=== PATIENT | male | born 1970 | race Caucasian/White ===

== ENCOUNTER 2022-03-14 13:48 | Inpatient (IN) | payer MEDICAID ==
[~2022-03-14] VITALS: Ht 175.3 cm; Wt 109.8 kg
--- NOTE | 2022-03-14 02:00 | NUR ---
PATIENT ASLEEP,BREATHING EVEN AND UNLABORED,NO DISTRESS NOTED
[2022-03-14 13:53] VITALS: BP 109/64
[2022-03-14 15:43] LABS: HEMATOCRIT 20.2 % (36-52); MEAN CORPUSCULAR HEMOGLOBIN 20 pg (27-31); MEAN CORPUSCULAR HGB CONC 30 g/dL (33-37); MEAN CORPUSCULAR VOLUME 66.7 fL (80-94); PLATELET COUNT (AUTO) 644 K/uL (140-450); RED BLOOD CELL COUNT(AUTO) 3.03 MIL/uL (4.20-6.10); RED CELL DISTRIBUTION WIDTH 20.1 % (11.6-13.7); WHITE BLOOD COUNT (AUTO) 16.3 K/uL (4.8-10.8)
--- NOTE | 2022-03-14 15:51 | NUR ---
PT IN ROOM 5
[2022-03-14 15:55] LABS: ANION GAP 14.3 (8-16); CARBON DIOXIDE 22.6 mmol/L (21-32); CREATININE 0.8 mg/dL (0.6-1.3); POTASSIUM 3.9 mmol/L (3.5-5.1); TOTAL BILIRUBIN 0.4 mg/dL (0.0-1.0)
--- NOTE | 2022-03-14 15:59 | NUR ---
51YR OLD MALE BIB EMS FROM HOME. C/O BED SORES R BUTTOCK R AND L KNEE. NO FEVER NOTED. ORAL TEMP 99.1. PT IS BED BOUND . DENIES PAIN . DENIES SOB AND CP. ON BEDSIDE MONITOR. PCN PARAPLEGIA TORSO DOWN
--- NOTE | 2022-03-14 16:30 | NUR ---
CRITICAL LAB VALUES: HEMO6.0 HEMCT: 20.2 LATIC ACID: 2.3
[2022-03-14 16:38] LABS: LYMPHOCYTES % (MANUAL) 4 % (20-46); MONOCYTES % (MANUAL) 3 % (5-12)
[2022-03-14] MEDS ORDERED: VANCOMYCIN 1,000 MG in DEXTROSE 5% 250 ML IV ONE (16:50)
[2022-03-14] MEDS ORDERED: CALCIUM GLUC 1 GM/50 mL NS BAG 50 ML IV ONE (16:50)
[2022-03-14] MEDS ORDERED: VANCOMYCIN 1,000 MG VIAL ONE (16:56)
[2022-03-14 17:25] LABS: PROTHROMBIN TIME 12.7 secs (10.8-13.4)
[2022-03-14 18:00] LABS: BILIRUBIN,URINE NEGATIVE (NEGATIVE); BLOOD, URINE 3+ (NEGATIVE); COLOR,URINE YELLOW (YELLOW); LEUKOCYTE ESTERASE ,URINE 2+ (NEGATIVE); NITRITE, URINE POSITIVE (NEGATIVE); UGLUCOSE NEGATIVE (NEGATIVE)
[2022-03-14 18:05] LABS: APPEARANCE,URINE CLOUDY (CLEAR)
[2022-03-14 18:23] LABS: RBC,URINE NONE SEEN /HPF (0-5)
[2022-03-14] MEDS ORDERED: NACL 0.9% 1,000 ML IV ONE (18:40)
--- NOTE | 2022-03-14 19:12 | NUR ---
COVID SWAB COLLECTED
--- NOTE | 2022-03-14 20:00 | NUR ---
PATIETN RESTING IN BED. TALKING ON THE PHONE WITH FAMILY MEMBERS. AAOX4, VSS. BED LOW AND LOCKED. JEN SIDE RAILS UP FOR SAFETY. ALL NEEDS MET
[2022-03-14] MEDS ORDERED: VANCOMYCIN PER PHARMACY MC PRN (20:15)
[2022-03-14] MEDS ORDERED: ONDANSETRON 4 MG/2 ML VIAL IVP PRN (20:15)
[2022-03-14] MEDS ORDERED: DOCUSATE SODIUM 250 MG GELCAP PO PRN (20:20)
[2022-03-14] MEDS: LACTATED RINGERS 1,000 ML IV SCH (22:00)
--- NOTE | 2022-03-14 22:40 | NUR ---
Patient [facility]. Admited to MD ODELL. Will go to room 105A. Belongings list completed. Report to ARIANA VANEGAS.TRANSFER OF CARE.
--- NOTE | 2022-03-14 22:40 | NUR ---
Chart checked and completed.
--- NOTE | 2022-03-14 23:00 | NUR ---
RECEIVED PATIENT FROM ER NURSE FOR CONTINUITY OF CARE.PT IS ALERT ORIENTED X 4.IV ON LAC INTACT AND PATENT..NO DISTRESS NOTED.DAUGHERTY CATHETER DRAINING
--- NOTE | 2022-03-15 02:30 | NUR ---
TRANSFUSE 1 UNIT PRBC FOR HGB OF 6.0, NO ADVERSE REACTIONS NOTED. WILL CONTINUE TO MONITOR
[2022-03-15 04:00] VITALS: BP 116/62
[2022-03-15] MEDS ORDERED: VANCOMYCIN 1,000 MG VIAL ONE (05:42)
[2022-03-15] MEDS ORDERED: VANCOMYCIN 500 MG VIAL ONE (05:42)
[2022-03-15] MEDS ORDERED: VANCOMYCIN HCL 1.25 GM in DEXTROSE 5% 250 ML IV ONE (06:00)
--- NOTE | 2022-03-15 06:30 | NUR ---
1 UNIT PRBC HAS BEEN TRANSFUSED,NO ADVERSE REACTIONS NOTED. ONE DOSE OF VANCOCIN 1.25 GM STARTED,NO ADVERSE REACTIONS NOTED
--- NOTE | 2022-03-15 07:06 | NUR ---
PATIENT HAS BEEN SCREENED AND CATEGORIZED MODERATE NUTRITION RISK. PATIENT WILL BE SEEN WITHIN 3-5 DAYS OF ADMISSION. 03/17/22-03/19/22 MADISON BURNS MS, RDN Addendum: 03/15/22 at [address] Correction: PATIENT HAS BEEN SCREENED AND CATEGORIZED HIGH NUTRITION RISK. PATIENT WILL BE SEEN WITHIN 1-2 DAYS OF ADMISSION. 03/15/22-03/16/22 MADISON BURNS MS, RDN
--- NOTE | 2022-03-15 07:25 | NUR ---
SBAR REPORT RECEIVED FROM NIGHT NURSE, ALL CARES ASSUMED.
--- NOTE | 2022-03-15 07:30 | NUR ---
ENDORSED PT TO AM NURSE FOR CONTINUITY OF CARE AND TO ADMINISTER THE SECOND UNIT OF PRBC
[2022-03-15] MEDS: BACLOFEN 10 MG TAB PO SCH ×3 (09:09→17:24)
[2022-03-15] MEDS: FERROUS SULFATE 325 MG TABEC PO SCH ×2 (09:09→17:24)
--- NOTE | 2022-03-15 10:35 | NUR ---
IV CATHETER NOTED OUT OF PLACE, CATHETER APPEARS KINKED. IV REMOVED. NEW IV STARTED ON RIGHT WRIST 18G. BLOOD RETURN NOTED, FLUSHED WITH NORMAL SALINE. Addendum: 03/15/22 at 1827 by Agency 09 ARIANA RN 18 GAUGE TO LEFT WRIST.
[2022-03-15] MEDS: LACTATED RINGERS 1,000 ML IV SCH ×2 (11:05→23:08)
--- NOTE | 2022-03-15 11:44 | NUR ---
(03/15/22) RD INITIAL ASSESSMENT COMPLETED PLEASE REFER TO NUTRITION ASSESSMENT UNDER CARE ACTIVITY FOR ESTIMATED NUTRITIONAL NEEDS. RD RECOMMENDATIONS: 1. CONTINUE ON REGULAR DIET TOLERATED. 2. CONSIDER ADDING KALA TID. 3. CONSULT RDN PRN. 4. RD WILL F/U 2-3 DAYS; HIGH RISK. MARGARITA BURNS MS, RDN
[2022-03-15] MEDS: metroNIDAZOLE 500 MG TAB PO SCH ×2 (13:05→17:24)
--- NOTE | 2022-03-15 14:50 | NUR ---
INITIATED TRANSFUSION OF 1 UNIT PRBC AT 1425. NO ADVERSE REACTION NOTED AT THIS TIME. WILL CONTINUE TO MONITOR.
[2022-03-15 16:00] VITALS: BP 101/60
--- NOTE | 2022-03-15 17:50 | NUR ---
BLOOD TRANSFUSION COMPLETED. VSS, NO ADVERSE REACTION NOTED AT THIS TIME. WILL CONTINUE TO MONITOR.
[2022-03-15] MEDS ORDERED: VANCOMYCIN 1,000 MG in DEXTROSE 5% 250 ML IV SCH (18:00)
--- NOTE | 2022-03-15 19:22 | NUR ---
SBAR REPORT GIVEN TO BABAR RN, ALL CARES ENDORSED.
--- NOTE | 2022-03-15 19:30 | NUR ---
RECEIVED REPORT FROM DAY SHIFT NURSE FOR CONTINUITY OF CARE. PATIENT WAS LYING SUPINE IN BED. IV IS A 18G IN LEFT WRIST WITH LR RUNNING AT 75ML. PATIENT'S BREATHING IS NORMAL WITH SYMMETRICAL RISE AND FALL OF CHEST. BED IS IN LOWEST POSITION WITH WHEELS LOCKED AND CALL LIGHT WITHIN REACH. WILL CONTINUE TO OBSERVE PATIENT.
[2022-03-15 20:00] VITALS: BP 114/65
[2022-03-15 20:12] LABS: BASOPHILS # (AUTO) 0.1 K/uL (0.00-0.22); BASOPHILS % (AUTO) 0.7 % (0.0-2.0); EOSINOPHILS # (AUTO) 0.2 K/uL (0-0.4); EOSINOPHILS % (AUTO) 1.4 % (0.0-4.0); HEMATOCRIT 25.1 % (36-52); HEMOGLOBIN 7.5 g/dL (12.0-18.0); LYMPHOCYTES # (AUTO) 1.6 K/uL (2.0-11.5); LYMPHOCYTES % (AUTO) 9.1 % (20.5-51.1); MEAN CORPUSCULAR HEMOGLOBIN 21 pg (27-31); MEAN CORPUSCULAR HGB CONC 30 g/dL (33-37); MEAN CORPUSCULAR VOLUME 70.6 fL (80-94); MONOCYTES # (AUTO) 2.2 K/uL (0.8-1.0); MONOCYTES % (AUTO) 12.6 % (1.7-9.3); NEUTROPHILS # (AUTO) 13.2 K/uL (1.8-7.7); NEUTROPHILS % (AUTO) 76.2 % (42.2-75.2); PLATELET COUNT (AUTO) 574 K/uL (140-450); RED BLOOD CELL COUNT(AUTO) 3.55 MIL/uL (4.20-6.10); WHITE BLOOD COUNT (AUTO) 17.3 K/uL (4.8-10.8)
[2022-03-15 21:02] LABS: ANION GAP 10.2 (8-16); CARBON DIOXIDE 24.3 mmol/L (21-32); CREATININE 0.7 mg/dL (0.6-1.3); MAGNESIUM 2.2 mg/dL (1.8-2.4); POTASSIUM 3.5 mmol/L (3.5-5.1); TOTAL BILIRUBIN 0.3 mg/dL (0.0-1.0)
--- NOTE | 2022-03-15 21:40 | NUR ---
LOOKED IN ON PATIENT. PATIENT WAS SLEEPING WITH IV RUNNING. BREATHING WAS NORMAL WITH SYMMETRICAL RISE AND FALL OF CHEST. BED WAS IN LOWEST POSITION, WHEELS WERE LOCKED, CALL LIGHT WAS WITHIN REACH. WILL CONTINUE TO OBSERVE PATIENT.
--- NOTE | 2022-03-16 01:15 | NUR ---
LOOKED IN ON PATIENT AND ASSESSED WOUNDS. BOTH DRESSINGS ON THE LEFT KNEE WERE DRY AND INTACT. THE RIGHT KNEE DRESSING WAS WET DUE TO DRAINAGE AND REQUIRED CHANGING. THE OLD DRESSING WAS REMOVED AND A NEW DRESSING WAS APPLIED. ISLAND DRESSING WAS USED WITH THE OIL EMOLSION AND GAUZE PADS, SINCE ABD DRESSING WAS NOT AVAILABLE. THE BUTTOCKS WAS THEN ASSESSED AND THE WOUND WAS FOUND TO HAVE DRAINAGE THAT REQUIRED REPLACING THE BANDAGES ON BOTH THE LEFT AND RIGHT SIDE OF THE BUTTOCKS. NEW NII PADS AND DRESSING WAS APPLIED. PATIENT WAS ALSO GIVEN A NEW GOWN AFTER CHANGE WAS COMPLETE. PATIENT HAD LACTATED RINGER RUNNING AT 75ML, AND BREATHING WAS NORMAL WITH SYMMETRICAL RISE AND FALL OF CHEST. BED WAS IN LOWEST POSITION, WHEELS LOCKED, AND CALL LIGHT WAS WITHIN REACH. WILL CONTINUE TO OBSERVE PATIENT.
--- NOTE | 2022-03-16 05:00 | NUR ---
LOOKED IN ON PATIENT. PATIENT WAS SLEEPING. EMPTIED COLOSTOMY BAG. 50ML OF STOOL WAS EMPTIED. PATIENT'S STOOL WAS SOFT AND BROWN. THERE WAS NO ODOR PRESENT IN STOOL. PATIENT WAS ABLE TO SLEEP THROUGH THE EMPTYING OF THE BAG, WAKING ONLY BRIEFLY WHEN WAKING PATIENT TO LET HIM KNOW THAT THE BAG WAS GOING TO BE EMPTIED. PATIENT'S BED WAS IN LOWEST POSITION, WHEELS LOCKED, CALL LIGHT WITHIN REACH. BREATHING WAS NORMAL AND NON-LABORED WITH SYMMETRICAL RISE AND FALL OF CHEST. WILL CONTINUE TO OBSERVE.
[2022-03-16 06:28] LABS: BASOPHILS # (AUTO) 0.1 K/uL (0.00-0.22); BASOPHILS % (AUTO) 0.7 % (0.0-2.0); EOSINOPHILS # (AUTO) 0.6 K/uL (0-0.4); EOSINOPHILS % (AUTO) 3.1 % (0.0-4.0); HEMATOCRIT 26.1 % (36-52); HEMOGLOBIN 8.1 g/dL (12.0-18.0); LYMPHOCYTES # (AUTO) 1.7 K/uL (2.0-11.5); LYMPHOCYTES % (AUTO) 9.9 % (20.5-51.1); MEAN CORPUSCULAR HEMOGLOBIN 22 pg (27-31); MEAN CORPUSCULAR HGB CONC 31 g/dL (33-37); MONOCYTES # (AUTO) 2.1 K/uL (0.8-1.0); MONOCYTES % (AUTO) 11.7 % (1.7-9.3); NEUTROPHILS # (AUTO) 13.1 K/uL (1.8-7.7); NEUTROPHILS % (AUTO) 74.6 % (42.2-75.2); PLATELET COUNT (AUTO) 658 K/uL (140-450); RED BLOOD CELL COUNT(AUTO) 3.67 MIL/uL (4.20-6.10); WHITE BLOOD COUNT (AUTO) 17.6 K/uL (4.8-10.8)
[2022-03-16 06:35] LABS: ANION GAP 12.4 (8-16); CARBON DIOXIDE 24.1 mmol/L (21-32); CREATININE 0.6 mg/dL (0.6-1.3); POTASSIUM 3.5 mmol/L (3.5-5.1)
--- NOTE | 2022-03-16 07:19 | NUR ---
ENDORSED TO DAY SHIFT NURSE YUNI FOR CONTINUITY OF CARE. PATIENT IS STABLE.
--- NOTE | 2022-03-16 07:22 | NUR ---
SBAR REPORT RECEIVED FROM BABAR RN, ALL CARES ASSUMED.
[2022-03-16] MEDS: FERROUS SULFATE 325 MG TABEC PO SCH ×2 (07:53→17:14)
[2022-03-16 08:00] VITALS: BP 105/64
[2022-03-16] MEDS: BACLOFEN 10 MG TAB PO SCH ×3 (09:00→17:14)
[2022-03-16] MEDS: levoFLOXacin 500 MG TAB PO SCH (09:00)
[2022-03-16] MEDS: metroNIDAZOLE 500 MG TAB PO SCH ×3 (09:00→17:14)
[2022-03-16] MEDS: VANCOMYCIN 750 MG in DEXTROSE 5% 250 ML IV SCH ×2 (11:00→22:44)
[2022-03-16] MEDS: LACTATED RINGERS 1,000 ML IV SCH (12:35)
[2022-03-16 16:00] VITALS: BP 102/60
[2022-03-16] MEDS ORDERED: VANCOMYCIN HCL 750 MG in DEXTROSE 5% 250 ML IV SCH (18:00)
--- NOTE | 2022-03-16 19:28 | NUR ---
SBAR REPORT GIVEN TO BABAR RN, ALL CARES ENDORSED.
--- NOTE | 2022-03-16 19:29 | NUR ---
RECEIVED BEDSIDE REPORT FROM DAY SHIFT YUNI RN FOR CONTINUITY OF CARE. PT IS ASLEEP AT THIS TIME. NO RESPIRATORY DISTRESS NOTED. BREATHING EVEN AND UNLABORED. PT HAS LEFT WRIST 18 GAUGE SALINE LOCK. PT HAS SUPRAPUBIC CATH AND COLOSTOMY. COMMUNICATION BOARD UPDATED. WILL CONTINUE TO MONITOR THE PT.
[2022-03-16 20:00] VITALS: BP 99/63
--- NOTE | 2022-03-16 22:51 | NUR ---
SCHEDULE VANCO GIVEN. NO ADVERSE REACTION NOTED. WILL CONTINUE TO MONITOR THE PT.
--- NOTE | 2022-03-17 01:30 | NUR ---
PT WAS SEEN. PT IS SLEEPING IN BED NOT IN ANY DISTRESS. BREATHING EVEN AND UNLABORED. BED AT THE LOWEST POSITION. CALL LIGHT WITHIN REACH. WILL CONTINUE TO OBSERVE PT.
--- NOTE | 2022-03-17 04:45 | NUR ---
PT BUTTOX DRESSING WAS CHANGED WITH ABD DRESSING. MODERATE AMOUNT OF DRAINAGE NOTED. PT DENIED ANY PAIN AND SAID HE IS OKAY DURING CHANGE. PT REQUESTED A SANDWICH AND JUICE. IT WAS PROVIDED REQUESTED. NO OTHER COMPLAINS. WILL CONTINUE TO MONITOR THE PT.
--- NOTE | 2022-03-17 07:05 | NUR ---
ENDORSED PT TO RADHA FOR CONTINUITY OF CARE. PT IS STABLE.
--- NOTE | 2022-03-17 07:10 | NUR ---
RECEIVED REPORT FROM FLAME ANNEALING MACHINE OPERATOR NURSE FOR CONTINUITY OF CARE. PATIENT ASLEEP NO DISTRESS NOTED. RESPIRAITON EVEN AND NOT LABORED NO SHORTNESS OF BREATH. CALL LIGHT WITH IN EASY REACH.
--- NOTE | 2022-03-17 07:30 | NUR ---
PLAN OF CARE DISCUSSED WITH AISSATOU GARCIA AND WILL CONTINUE ON CURRENT CARE PLAN
[2022-03-17 07:33] LABS: BASOPHILS # (AUTO) 0.1 K/uL (0.00-0.22); BASOPHILS % (AUTO) 0.6 % (0.0-2.0); EOSINOPHILS # (AUTO) 0.3 K/uL (0-0.4); EOSINOPHILS % (AUTO) 1.8 % (0.0-4.0); HEMOGLOBIN 7.8 g/dL (12.0-18.0); LYMPHOCYTES # (AUTO) 1.7 K/uL (2.0-11.5); LYMPHOCYTES % (AUTO) 11.3 % (20.5-51.1); MEAN CORPUSCULAR HEMOGLOBIN 21 pg (27-31); MEAN CORPUSCULAR HGB CONC 30 g/dL (33-37); MEAN CORPUSCULAR VOLUME 71.4 fL (80-94); MONOCYTES # (AUTO) 1.8 K/uL (0.8-1.0); NEUTROPHILS % (AUTO) 74.3 % (42.2-75.2); PLATELET COUNT (AUTO) 645 K/uL (140-450); RED BLOOD CELL COUNT(AUTO) 3.64 MIL/uL (4.20-6.10); RED CELL DISTRIBUTION WIDTH 21.8 % (11.6-13.7); WHITE BLOOD COUNT (AUTO) 14.8 K/uL (4.8-10.8)
[2022-03-17 08:00] VITALS: BP 113/70
[2022-03-17 08:21] LABS: ANION GAP 13.5 (8-16); CARBON DIOXIDE 24.2 mmol/L (21-32); CREATININE 0.6 mg/dL (0.6-1.3); POTASSIUM 3.7 mmol/L (3.5-5.1)
[2022-03-17] MEDS: FERROUS SULFATE 325 MG TABEC PO SCH ×2 (08:44→17:17)
[2022-03-17] MEDS: metroNIDAZOLE 500 MG TAB PO SCH ×3 (08:44→17:17)
[2022-03-17] MEDS: BACLOFEN 10 MG TAB PO SCH ×3 (08:45→17:17)
[2022-03-17] MEDS: levoFLOXacin 500 MG TAB PO SCH (08:45)
--- NOTE | 2022-03-17 08:47 | NUR ---
PATIENT ALERT ATE BREAKFAST. GIVEN ALL HIS DUE MEDICATION TOLERATED WELL. ALL SAFETY MEASURE IN PLACE.
--- NOTE | 2022-03-17 09:45 | NUR ---
RWECEIVED MRSA LB RESULT INFORM DR. BAIN ORDER FOR PROTOCOL AND CONTACT ISOLATION.
[2022-03-17] MEDS: CHLORHEXADINE GLUC 2% CLOTH TP SCH (10:49)
[2022-03-17] MEDS: MUPIROCIN CA NASAL 2% 1GM TUBE NS SCH (10:49)
[2022-03-17] MEDS: VANCOMYCIN 750 MG in DEXTROSE 5% 250 ML IV SCH ×2 (10:56→23:15)
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
--- NOTE | 2022-03-17 12:15 | NUR ---
WOUND NURSE AND I DOING TREATMENT TO PATIENT NOTED THAT WOUND ON COCCYX SOAK WITH BLOOD AND ALSO WITH BLOOD CLOT. WE CLEANSE AND PUT DRESSING WE ARE STILL DOING THE OTHER SIDE AND NOTED THAT WOUND DRESSING IS SOAK WITH BLOOD AGAIN TREATMENT NURSE REINFORCE DRESSING. CALLED DR. BAIN REGARDING THE PATIENT CONDITION. ALSO THE TREATMENT NURSE SPOKE TO SISTER WHO'S TAKING CARE OF THE PATIENT AT HOME SHE INFORM HER THAT PATIENT WILL BENEFIT FOR SNF FOR WOUND MANAGEMENT.
--- NOTE | 2022-03-17 14:35 | NUR ---
LATE ENTRY- VANCOMYCIN DISCONTINUED AT 2240.
--- NOTE | 2022-03-17 15:22 | NUR ---
PATIENT ON STABLE CONDITION NO ADVERSE REACTION NOTED ON ANTIBIOTIC THERAPY. ENCOURAGE TO INCREASE FLUID TOLERATED.
[2022-03-17 16:00] VITALS: BP 103/69
--- NOTE | 2022-03-17 18:02 | NUR ---
RECEIVED LAB RESULT FOR URINE CULTURE WITH ECOLI AND MDRO DR. BAIN AWARE.
--- NOTE | 2022-03-17 18:10 | NUR ---
DR. DENNEY SEE WOUND OF THE PATIENT AND SAID THE WOUND IS CLEAN AND NO ACTIVE BLEEDING AT THIS TIME.
--- NOTE | 2022-03-17 18:30 | NUR ---
DR. CHAVEZ INFORM OF MDRO AND ECOLI IN URINE CULTURE ORDE TO DISCONTINUE LEVAQUIN, VANCO AND FLAGYL AND ORDER MERREM. PATIENT WITH ALLERGY TO PCN AND STATED HE HAS RASH AND HIVES DR. CHAVEZ AWARE AND HE WANT TO SEE FIRST IF HE WILL HAVE REACTION. WILL MONITOR WHEN MERREM IS ADMINISTER. Addendum: 03/17/22 at 1845 by Mary Little LVN ERROR.
--- NOTE | 2022-03-17 18:30 | NUR ---
DR. CHAVEZ INFORM OF MDRO AND ECOLI IN URINE CULTURE ORDE TO DISCONTINUE LEVAQUIN AND FLAGYL AND ORDER MERREM. PATIENT WITH ALLERGY TO PCN AND STATED HE HAS RASH AND HIVES DR. CHAVEZ AWARE AND HE WANT TO SEE FIRST IF HE WILL HAVE REACTION. WILL MONITOR WHEN MERREM IS ADMINISTER.
--- NOTE | 2022-03-17 19:22 | NUR ---
PATIENT AWAKE GAVE REPORT TO TEST ENGINEERING TECHNICIAN NURSE FOR CONTINUITY OF CARE.
--- NOTE | 2022-03-17 19:45 | NUR ---
GET THE REPORT FROM MORNING NURSE, PATIENT IS LYING ON BED, PATIENT IS ALERT ORIENTED X3-4, PATIENT HAS STAGE 4 PRESSURE ULCER ON SACRAL, PATIENT HAS BOTH KNEE AND BOTH HEELS PRESSURE ULCER, CALL LIGHT IS WITHIN THE REACH, WILL CONTINUE TO MONITOR PATIENT.,
--- NOTE | 2022-03-17 19:50 | NUR ---
MORNING NURSE NOTIFIED IN REPORT THAT PATIENT HAS ALLERGY OF PENICILLINS , HIVES AND RASHES,PATIENT IS RECEIVING MEROPENEM 1000MG IV WHICH HAS PENICILLIN SMALL AMOUNT DUE TO PHARMACY, DOCTOR MARIBELL IS AWARE OF THAT AND HE SAID TO GIVE HIS FIRST DOES AT SCHEDULE TIME AND MONITOR FOR REACTION IF HE START REACTION STOP MEDICATION AND NOTIFY DOCTOR, WILL FOLLOW THE DOCTOR ORDER, CALL LIGHT IS WITHIN THE REACH ,WILL CONTINUE TO MONITOR PATIENT.
[2022-03-17 20:00] VITALS: BP 111/49
--- NOTE | 2022-03-17 21:37 | NUR ---
PATIENT HAS FEVER OF 100.9F, GAVE TYLENOL 650 MG PO PRN FOR FEVER PER DOCTOR ORDER, VITAL SIGN IS WITHIN THE NORMAL RANGE, CALL LIGHT IS WITHIN THE REACH, WILL CONTINUE TO MONITOR PATIENT.
[2022-03-17] MEDS: ACETAMINOPHEN 325 MG TAB PO PRN (21:39)
--- NOTE | 2022-03-17 21:40 | NUR ---
TALKED TO PATIENT ABOUT MEROPENEM AND HE SAID HE HAD REACTION WHEN HE WAS 1 YEAR OLD, SO HE SAID HE WANTS TO TAKE IT,VITAL SIGN IS WITHIN THE NORMAL RANGE, WILL CONTINUE TO MONITOR DURING MEDICATION ADMINISTRATION,CALL LIGHT IS WITHIN THE REACH,
[2022-03-17] MEDS: MEROPENEM 1,000 MG in NACL 0.9% 50 ML IV SCH (22:11)
--- NOTE | 2022-03-17 22:28 | NUR ---
ASKED THE PATIENT IF HE HAVE ANY ITCHING HE SAID IM ALL RIGHT, STILL MONITORING FOR HIVES AND RASH, NO ANY HIVES OR RASH AT THIS TIME,CALL LIGHT IS WITHIN THE REACH,
--- NOTE | 2022-03-17 23:17 | NUR ---
FINISHED MEROPENEM 1000MG , NO REACTION NOTED, TOLERATED WELL, WILL CONTINUE TO MONITOR PATIENT.
--- NOTE | 2022-03-18 00:06 | NUR ---
PATIENT IS LYING ON BED, NO ANY COMPLAIN OF PAIN OR SHORTNESS OF BREATH AT THIS TIME, CALL LIGHT IS WITHIN THE REACH, WILL CONTINUE TO MONITOR PATIENT.
[2022-03-18 04:00] VITALS: BP 112/51
[2022-03-18] MEDS: MEROPENEM 1,000 MG in NACL 0.9% 50 ML IV SCH ×3 (04:02→20:57)
--- NOTE | 2022-03-18 04:15 | NUR ---
PATIENT IS LYING ON BED, NO ANY COMPLAIN OF PAIN OR SHORTNESS OF BREATH AT THIS TIME, VITAL SIGN IS WITHIN THE NORMAL RANGE, CALL LIGHT IS WITHIN THE REACH, WILL CONTINUE TO MONITOR PATIENT.
--- NOTE | 2022-03-18 06:07 | NUR ---
PATIENT IS LYING ON BED, ALL SCHEDULE MEDICATION IS GIVEN PER DOCTOR ORDER, CALL LIGHT IS WITHIN THE REACH, WILL CONTINUE TO MONITOR PATIENT.
--- NOTE | 2022-03-18 06:34 | NUR ---
ALL DRESSING CHANGED WITH HELP OF CODING COMPLIANCE MANAGER AND CHANGE POSITION OF PATIENT , NO ACTIVE BLEEDING NOTED, NO ANY COMPLAIN OF PAIN AT THIS TIME, CALL LIGHT IS WITHIN THE REACH, WILL CONTINUE TO MONITOR PATIENT.
--- NOTE | 2022-03-18 07:09 | NUR ---
RECEIVED LAB RESULT FOR BLOOD CULTURE POSITIVE COCCI IN CLUSTER LEFT MESSAGE TO DR. CHAVEZ.
--- NOTE | 2022-03-18 07:16 | NUR ---
GAVE THE REPORT TO MORNING NURSE RADHA FOR CONTINUOS OF CARE, PATIENT IS STABLE.
--- NOTE | 2022-03-18 07:17 | NUR ---
RECEIVED REPORT FROM HYDRAULIC AND PLUMBING INSTALLER NURSE FOR CONTINUITY OF CARE. PATIENT ASLEEP ON WOUND BED. IV SITE LEFT WRIST PIPER 18 TKO. RESPIRATION EVEN AND NOT LABORED NO SHORTNESS OF BREATH. ALL SAFETY MEASURE IN PLACE.
[2022-03-18 07:37] LABS: BASOPHILS # (AUTO) 0.1 K/uL (0.00-0.22); BASOPHILS % (AUTO) 0.5 % (0.0-2.0); EOSINOPHILS # (AUTO) 0.2 K/uL (0-0.4); HEMATOCRIT 25.5 % (36-52); HEMOGLOBIN 7.7 g/dL (12.0-18.0); LYMPHOCYTES # (AUTO) 1.8 K/uL (2.0-11.5); LYMPHOCYTES % (AUTO) 10.1 % (20.5-51.1); MEAN CORPUSCULAR HEMOGLOBIN 21 pg (27-31); MEAN CORPUSCULAR HGB CONC 30 g/dL (33-37); MEAN CORPUSCULAR VOLUME 70.7 fL (80-94); MONOCYTES # (AUTO) 1.7 K/uL (0.8-1.0); MONOCYTES % (AUTO) 9.3 % (1.7-9.3); NEUTROPHILS # (AUTO) 14.5 K/uL (1.8-7.7); NEUTROPHILS % (AUTO) 79.1 % (42.2-75.2); PLATELET COUNT (AUTO) 670 K/uL (140-450); RED BLOOD CELL COUNT(AUTO) 3.61 MIL/uL (4.20-6.10); RED CELL DISTRIBUTION WIDTH 22.4 % (11.6-13.7); WHITE BLOOD COUNT (AUTO) 18.3 K/uL (4.8-10.8)
[2022-03-18 08:05] LABS: ANION GAP 12.4 (8-16); CARBON DIOXIDE 24.1 mmol/L (21-32); CREATININE 0.7 mg/dL (0.6-1.3); POTASSIUM 3.5 mmol/L (3.5-5.1)
[2022-03-18] MEDS: BACLOFEN 10 MG TAB PO SCH ×3 (08:43→16:44)
[2022-03-18] MEDS: FERROUS SULFATE 325 MG TABEC PO SCH ×2 (08:43→16:44)
--- NOTE | 2022-03-18 08:56 | NUR ---
GIVEN HIS MEDICATION AND ASSISTED TO PREPARE HIS BREAKFAST. PATIENT NO DISTRESS NOTED.
[2022-03-18] MEDS: MUPIROCIN CA NASAL 2% 1GM TUBE NS SCH (10:08)
[2022-03-18] MEDS: CHLORHEXADINE GLUC 2% CLOTH TP SCH (10:09)
--- NOTE | 2022-03-18 10:30 | NUR ---
PATIENT WHEELED BY [employer] FOR HIS BONE SCAN. PATIENT ON STABLE CONDITION.
[2022-03-18] MEDS: VANCOMYCIN 750 MG in DEXTROSE 5% 250 ML IV SCH ×2 (11:26→22:48)
--- NOTE | 2022-03-18 11:33 | NUR ---
PATIENT BACK FROM RADIOLOGY PATIENT ON STABLE CONDITION.
[2022-03-18] MEDS: ACETAMINOPHEN 325 MG TAB PO PRN (12:19)
--- NOTE | 2022-03-18 12:20 | NUR ---
PATIENT NOTED WITH CHILLS AND SHIVERING WHEN I CHECK NOTED WITH TEMP. 100.9 GIVEN TYLENOL AND COOLING MEASURE INFORM DR. BAIN.
--- NOTE | 2022-03-18 13:43 | NUR ---
03/18/22 RD FOLLOW UP COMPLETED PLEASE REFER TO NUTRITION ASSESSMENT UNDER CARE ACTIVITY FOR ESTIMATED NUTRITIONAL NEEDS. 1. CONTINUE ON REGULAR DIET TOLERATED. 2. RECOMMEND ENSURE 1XDAY AND KALA BID PER RD PROTOCOL 3. RD WILL F/U 3-5 DAYS; MODERATE RISK. KATERIN WEBB RD
--- NOTE | 2022-03-18 14:00 | NUR ---
RECHECKED TEMPERATURE AND ITS 98.4 NOW PATIENT EATING LUNCH. AND DRINKING WATER.
[2022-03-18 16:00] VITALS: BP 87/52
[2022-03-18] MEDS: GAUZE TP SCH (16:30)
[2022-03-18] MEDS: THERAHONEY GEL 42.5 GM TP SCH (16:30)
--- NOTE | 2022-03-18 16:30 | NUR ---
DRESSING CHANGE ON HIS WOUND AND REPOSITION PATIENT TOLERATED WELL. NO ADVERSE REACTION NOTED ON IV ANTIBIOTIC THERAPY.
--- NOTE | 2022-03-18 19:05 | NUR ---
PATIENT ASLEEP AFTER HE ATE DINNER. GAVE REPORT TO AUTOMOBILE MECHANIC MOTOR NURSE FOR CONTINUITY OF CARE.
--- NOTE | 2022-03-18 19:42 | NUR ---
INFORM DR. CHAVEZ THAT LAB CALLED THAT THE BLOOD CULTURE THAT THEY REPORTED THIS MORNING OF GRAM POSITIVE COCCI IN CLUSTER IS ACTUALLY GRAM NEGATIVE RAD.
--- NOTE | 2022-03-18 19:43 | NUR ---
RECEIVED PT FROM MORNING SHIFT NURSE. PT IS BEDBOUND, AOX3, AND CAN VERBALIZE NEEDS. PT HAS COLOSTOMY AND SUPRA PUBIC CATHETER. PT HAS IV ON LEFT WRIST G18 RUNNING WITH NS AT TKO. PATIENT HAS DTI IN BOTH HEEL AND STAGE 4 PRESSURE ULCER ON BUTTOCKS AND WOUND BOTH KNEE. ALL SAFETY MEASURES IMPLEMENTED. WHEELS OF BED LOCKED AND BED ON LOW POSITION. CALL LIGHT WITHIN REACH.
--- NOTE | 2022-03-18 20:57 | NUR ---
SCHEDULED MEDICATION WAS GIVEN TO PT PER MD ORDER. PT TOLERATE IT WELL. ALL SAFETY MEASURES IMPLEMENTED. BED WHEELS LOCKED, BED IN LOW POSITION AND CALL LIGHT WITHIN REACH.
[2022-03-19] VITALS: BP 95/61
--- NOTE | 2022-03-19 | NUR ---
PT IS ON SLEEP. CHEST RISE AND FALL SYMMETRICALLY NOTED SATING AT 95% AND A PULSE OF 90. ALL SAFETY MEASURES IMPLEMENTED. BED IN LOW POSITION, BED WHEELS LOCKED AND CALL LIGHT WITHIN REACH.
--- NOTE | 2022-03-19 01:35 | NUR ---
NOTIFIED DR. ARELLANO REGARDING PATIENTS BP. LOWEST BP 88/56 WITH THE LATEST OF 93/54. DR. ARELLANO ORDERED NS AT 80ML/HR. NEW ORDER MADE AND CARRIED OUT.
[2022-03-19] MEDS: NACL 0.9% 1,000 ML IV SCH ×2 (02:04→13:09)
[2022-03-19] MEDS: MEROPENEM 1,000 MG in NACL 0.9% 50 ML IV SCH ×3 (04:10→20:39)
--- NOTE | 2022-03-19 04:22 | NUR ---
NOTIFIED DR. ARELLANO FOR ANY ORDERS REGARDING PT BP 95/54 WITH PULSE 95. WAITING FOR MD REPLY.
--- NOTE | 2022-03-19 06:29 | NUR ---
PT LATEST BP 113/68 PULSE OF 95. NO S/S OF PAIN DISCOMFORT NOTED. ALL SAFETY MEASURES IMPLEMENTED. CALL LIGHT WITHIN REACH.
[2022-03-19 07:08] LABS: ANION GAP 9.1 (8-16); CARBON DIOXIDE 25.5 mmol/L (21-32); CREATININE 0.7 mg/dL (0.6-1.3); POTASSIUM 3.6 mmol/L (3.5-5.1)
[2022-03-19 07:13] LABS: BASOPHILS # (AUTO) 0.2 K/uL (0.00-0.22); BASOPHILS % (AUTO) 0.7 % (0.0-2.0); EOSINOPHILS # (AUTO) 0.6 K/uL (0-0.4); EOSINOPHILS % (AUTO) 3.1 % (0.0-4.0); HEMATOCRIT 23.9 % (36-52); LYMPHOCYTES # (AUTO) 1.9 K/uL (2.0-11.5); LYMPHOCYTES % (AUTO) 9.3 % (20.5-51.1); MEAN CORPUSCULAR HEMOGLOBIN 22 pg (27-31); MEAN CORPUSCULAR HGB CONC 30 g/dL (33-37); MEAN CORPUSCULAR VOLUME 72.7 fL (80-94); MONOCYTES # (AUTO) 1.5 K/uL (0.8-1.0); MONOCYTES % (AUTO) 7.4 % (1.7-9.3); NEUTROPHILS # (AUTO) 16.1 K/uL (1.8-7.7); NEUTROPHILS % (AUTO) 79.5 % (42.2-75.2); PLATELET COUNT (AUTO) 618 K/uL (140-450); RED BLOOD CELL COUNT(AUTO) 3.29 MIL/uL (4.20-6.10); RED CELL DISTRIBUTION WIDTH 22.8 % (11.6-13.7); WHITE BLOOD COUNT (AUTO) 20.2 K/uL (4.8-10.8)
--- NOTE | 2022-03-19 07:15 | NUR ---
PT IS STABLE. ENDORSED PT TO MORNING SHIFT NURSE FOR CONTINUITY OF CARE.
--- NOTE | 2022-03-19 07:43 | NUR ---
CONTACTED DR. BAIN REGARDING CRITICAL LAB VALUE. NEW ORDER TO TRANSFUSE 2 UNIT PRBC AND TRANSFER TO TELE.
[2022-03-19 08:00] VITALS: BP 102/57
--- NOTE | 2022-03-19 08:00 | NUR ---
KAITLIN SWELLING. PT STATES KAITLIN PAIN 5/10 AND STATES, "IT HAS BEEN LIKE THIS FOR 2 DAYS ALREADY" IVF STOPPED. IV DISCONTINUED. ARM ELEVATED WITH PILLOW. WARM COMPRESS APPLIED. SPOKE WITH DR. KAM REGARDING KAITLIN SWELLING AND PICC LINE. NEW ORDER FOR US OF KAITLIN AND PICC LINE ORDER. CONSENT SIGNED.
[2022-03-19] MEDS ORDERED: VANCOMYCIN PER PHARMACY MC PRN (08:30)
--- NOTE | 2022-03-19 08:42 | NUR ---
CONTACTED PICC LINE SERVICE TEAM FOR PICCLINE.
[2022-03-19] MEDS: BACLOFEN 10 MG TAB PO SCH ×3 (08:56→16:30)
[2022-03-19] MEDS: FERROUS SULFATE 325 MG TABEC PO SCH ×2 (08:56→16:29)
--- NOTE | 2022-03-19 10:10 | NUR ---
[facility] REPORTING WRONG CRITICAL RESULTS. CONTACTED DR. KAM AND STATES TO CANCEL THE 2 UNITS PRBC AND TRANSFUSE ONLY 1 UNIT PRBC.
[2022-03-19] MEDS: MUPIROCIN CA NASAL 2% 1GM TUBE NS SCH (10:56)
[2022-03-19] MEDS: CHLORHEXADINE GLUC 2% CLOTH TP SCH (10:56)
--- NOTE | 2022-03-19 11:00 | NUR ---
LUISA PICCLINE DOUBLE LUMEN INSERTED VIA PICCLINE TEAM. PT TOLERATED WELL. PT IN NO DISTRESS. ON RA. NEEDS ALL MET. SAFETY MEASURES IN PLACE.
[2022-03-19] MEDS: VANCOMYCIN 750 MG in DEXTROSE 5% 250 ML IV SCH ×2 (11:02→22:57)
[2022-03-19] MEDS: GAUZE TP SCH (13:08)
[2022-03-19] MEDS: THERAHONEY GEL 42.5 GM TP SCH (13:09)
--- NOTE | 2022-03-19 15:50 | NUR ---
STARTED 1 UNIT PRBC
[2022-03-19 16:00] VITALS: BP 129/75
--- NOTE | 2022-03-19 16:05 | NUR ---
1 UNIT PRBC TRANSFUSING. PT WITH NO REACTION. PT DENIES [id number], CHILL, FEVER, PAIN. VSS.
[2022-03-19] MEDS: ACETAMINOPHEN 325 MG TAB PO PRN (16:30)
--- NOTE | 2022-03-19 19:00 | NUR ---
1 UNIT PRBC COMPLETED. VSS. NO ADVERSE REACTION. PICC LINE FLUSHED WITH 10 ML NS.
--- NOTE | 2022-03-19 19:27 | NUR ---
REPORT GIVEN TO KANDACE HERNANDEZ RN FOR CONTINUITY OF CARE.
--- NOTE | 2022-03-19 19:28 | NUR ---
RECEIVED PT FROM MORNING SHIFT NURSE. PT IS BEDBOUND, AOX4, ABLE TO FOLLOW COMMANDS AND ABLE TO VERBALIZE NEEDS. PT HAS COLOSTOMY AND SUPRA PUBIC CATHETER. PT HAS PICC LINE ON RIGHT UPPER ARM, 2X LUMEN RUNNING WITH NS AT 80ML/HR. PATIENT HAS DTI IN BOTH HEEL AND STAGE 4 PRESSURE ULCER ON BUTTOCKS AND WOUND BOTH KNEE. ALL SAFETY MEASURES IMPLEMENTED. WHEELS OF BED LOCKED AND BED ON LOW POSITION. CALL LIGHT WITHIN REACH.
[2022-03-20] VITALS: BP 114/60
--- NOTE | 2022-03-20 00:30 | NUR ---
WOUND WAS CLEANED AND MORNING CARE WAS GIVEN TO PT. ALL MEASURES IMPLEMENTED. CALL LIGHT WITHIN REACH
[2022-03-20] MEDS: NACL 0.9% 1,000 ML IV SCH ×2 (01:41→15:00)
--- NOTE | 2022-03-20 02:00 | NUR ---
PT IS ON SLEEP. CHEST RISE AND FALL SYMMETRICALLY NOTED SATING AT 98%. ALL SAFETY MEASURES IMPLEMENTED. CALL LIGHT WITHIN REACH.
[2022-03-20] MEDS: MEROPENEM 1,000 MG in NACL 0.9% 50 ML IV SCH ×3 (04:16→21:01)
--- NOTE | 2022-03-20 07:08 | NUR ---
PT IS STABLE. ENDORSED PT TO MORNING SHIFT NURSE FOR CONTINUITY CARE.
[2022-03-20 07:13] LABS: BASOPHILS # (AUTO) 0.1 K/uL (0.00-0.22); BASOPHILS % (AUTO) 0.5 % (0.0-2.0); EOSINOPHILS # (AUTO) 0.3 K/uL (0-0.4); EOSINOPHILS % (AUTO) 1.7 % (0.0-4.0); HEMATOCRIT 26.3 % (36-52); LYMPHOCYTES # (AUTO) 1.8 K/uL (2.0-11.5); LYMPHOCYTES % (AUTO) 9.7 % (20.5-51.1); MEAN CORPUSCULAR HEMOGLOBIN 22 pg (27-31); MEAN CORPUSCULAR HGB CONC 30 g/dL (33-37); MEAN CORPUSCULAR VOLUME 73.5 fL (80-94); MONOCYTES # (AUTO) 1.7 K/uL (0.8-1.0); MONOCYTES % (AUTO) 8.7 % (1.7-9.3); NEUTROPHILS # (AUTO) 15.2 K/uL (1.8-7.7); NEUTROPHILS % (AUTO) 79.4 % (42.2-75.2); PLATELET COUNT (AUTO) 596 K/uL (140-450); RED BLOOD CELL COUNT(AUTO) 3.58 MIL/uL (4.20-6.10); WHITE BLOOD COUNT (AUTO) 19.1 K/uL (4.8-10.8)
--- NOTE | 2022-03-20 07:28 | NUR ---
RECEIVED REPORT FROM JAMCTKANDACE WHITESIDE RN. PT A/O X3. ABLE TO MAKE NEEDS KNOWN. AFEBRILE. HOB ELEVATED. NO SOB OR RESPIRATORY DISTRESS. ON RA. RR EVEN & UNLABORED. COLOSTOMY ON LLQ. SUPRACATHETER VIA GRAVITY. WOUND DRESSINGS C/D/I. NS @ 80 ML/HR ON KAITLIN PICC LINE DOUBLE LUMEN. ON CONTACT PRECAUTIONS. NEEDS ALL MET AT THIS TIME. SAFETY MEASURES IN PLACE.
[2022-03-20 08:00] VITALS: BP 106/63
[2022-03-20] MEDS: FERROUS SULFATE 325 MG TABEC PO SCH ×2 (08:57→16:55)
[2022-03-20] MEDS: MUPIROCIN CA NASAL 2% 1GM TUBE NS SCH (08:58)
[2022-03-20] MEDS: BACLOFEN 10 MG TAB PO SCH ×3 (08:58→16:57)
[2022-03-20] MEDS: HYDROcodone/APAP 5/325 MG 1 TAB TAB PO PRN ×2 (09:02→16:55)
[2022-03-20] MEDS: CHLORHEXADINE GLUC 2% CLOTH TP SCH (10:27)
[2022-03-20] MEDS: VANCOMYCIN 750 MG in DEXTROSE 5% 250 ML IV SCH ×2 (10:39→22:55)
[2022-03-20 11:52] LABS: ANION GAP 10.7 (8-16); CARBON DIOXIDE 24.3 mmol/L (21-32); CREATININE 0.7 mg/dL (0.6-1.3)
[2022-03-20 12:00] VITALS: BP 117/64
--- NOTE | 2022-03-20 12:00 | NUR ---
PT CHANGED, CLEANED AND REPOSITIONED. PT TOLERATED WELL AND DENIES PAIN AT THIS TIME. NO SOB OR RESPIRATORY DISTRESS. ON RA. SISTER AT BEDSIDE. COLOSTOMY BAG CHANGED. NEEDS ALL MET AT THIS TIME. SAFETY MEASURES IN PLACE.
[2022-03-20] MEDS: GAUZE TP SCH (13:51)
[2022-03-20] MEDS: THERAHONEY GEL 42.5 GM TP SCH (13:51)
[2022-03-20 16:00] VITALS: BP 102/54
--- NOTE | 2022-03-20 19:00 | NUR ---
PT STABLE, RESTING COMFORTABLY. HOB ELEVATED. IVF INFUSING ON LUISA PICC. DAUGHERTY VIA GRAVITY. NEEDS ALL MET. NO COMPLAINTS AT THIS TIME. SAFETY MEASURES IN PLACE. HOURLY ROUNDS CONDUCTED THROUGHOUT MY SHIFT. WILL ENDORSE POC TO NIGHTSHIFT.
--- NOTE | 2022-03-20 19:32 | NUR ---
BEDSIDE REPORT GIVEN TO NIGHTSHIFT NURSEESTEBAN FOR CONTINUITY OF CARE.
--- NOTE | 2022-03-20 19:35 | NUR ---
RECEIVED REPORT FROM AM NURSE ENMA FOR CONTINUITY OF CARE. PT IS AWAKE A&OX4 . STABLE IN BED. AT BEDSIDE. DENIES PAIN. ON RM AIR/O2 WITH NO ACUTE DISTRESS.. RR EVEN AND UNLABORED WITH EQUAL CHEST RISE.GI IS INTACT. COLOSTOMY BAG IN PLACE WITH BROWN SOFT BM AROUND STOMA.PT'S SKIN IS NOT INTACT. SUPRAPUBIC CATH IS DRAINING CLEAR YELLOW URINE. PT IS A PARAPLEGIC AT T7. PT IS BED BOUND. CALL LIGHT WITHIN REACH. WILL CONTINUE TO MONITOR.
[2022-03-20 20:00] VITALS: BP 102/57
--- NOTE | 2022-03-20 21:30 | NUR ---
HS MEDS GIVEN. SKIN IS NOT INTACT. PRESSURE ULCERS: STAGE IV BUTTOCK ULCER DRESSING D&I. STAGE 3R KNEE DRESSING D&I. STAGE 2 L KNEE DRESSING D&I. BILATERAL HEELS WRAPPED WITH KERLIX D&I. TURNED AND REPOSITIONED WITH PILLOWS TO OFF LOAD PRESSURE AREAS. PT IS STABLE. RESTING, DOZING. RR EVEN AND UNLABORED. ALL SAFETY MEASURES IN PLACE. BED IS IN LOW AND LOCKED POSITION. CALL LIGHT IS WITHIN REACH.
[2022-03-21] VITALS: BP 103/58
[2022-03-21 04:00] VITALS: BP 124/67
[2022-03-21] MEDS: MEROPENEM 1,000 MG in NACL 0.9% 50 ML IV SCH ×3 (04:11→21:20)
[2022-03-21] MEDS: NACL 0.9% 1,000 ML IV SCH ×2 (04:11→14:07)
--- NOTE | 2022-03-21 06:00 | NUR ---
MERREM IVPB INFUSED AND MORRO AM LABS FROM KAITLIN PICC LINE DBL LUMEN. SUPRAPUBIC CATH DRAINED 1950 CC CLEAR YELLOW URINE. ALL PRESSURE ULCER DRESSINGS D&I. CALL LIGHT WITHIN REACH. WILL CONTINUE TO MONITOR.
[2022-03-21 07:33] LABS: BASOPHILS # (AUTO) 0.1 K/uL (0.00-0.22); BASOPHILS % (AUTO) 0.6 % (0.0-2.0); EOSINOPHILS # (AUTO) 0.3 K/uL (0-0.4); EOSINOPHILS % (AUTO) 2.1 % (0.0-4.0); HEMATOCRIT 24.4 % (36-52); HEMOGLOBIN 7.4 g/dL (12.0-18.0); LYMPHOCYTES # (AUTO) 1.5 K/uL (2.0-11.5); LYMPHOCYTES % (AUTO) 9.5 % (20.5-51.1); MEAN CORPUSCULAR HEMOGLOBIN 23 pg (27-31); MEAN CORPUSCULAR HGB CONC 30 g/dL (33-37); MEAN CORPUSCULAR VOLUME 74.4 fL (80-94); MONOCYTES # (AUTO) 0.9 K/uL (0.8-1.0); MONOCYTES % (AUTO) 5.9 % (1.7-9.3); NEUTROPHILS # (AUTO) 12.9 K/uL (1.8-7.7); NEUTROPHILS % (AUTO) 81.9 % (42.2-75.2); PLATELET COUNT (AUTO) 390 K/uL (140-450); RED BLOOD CELL COUNT(AUTO) 3.28 MIL/uL (4.20-6.10); RED CELL DISTRIBUTION WIDTH 24.9 % (11.6-13.7); WHITE BLOOD COUNT (AUTO) 15.8 K/uL (4.8-10.8)
--- NOTE | 2022-03-21 07:35 | NUR ---
ENDORSED REPORT TO AM RN FOR CONTINUITY OF CARE. PT IS STABLE. ALL NEEDS MET THROUGHOUT THE SHIFT.
[2022-03-21 08:24] LABS: ANION GAP 11.6 (8-16); CARBON DIOXIDE 26.9 mmol/L (21-32); CREATININE 0.6 mg/dL (0.6-1.3); POTASSIUM 3.5 mmol/L (3.5-5.1)
[2022-03-21] MEDS: FERROUS SULFATE 325 MG TABEC PO SCH ×2 (08:33→16:45)
[2022-03-21] MEDS: BACLOFEN 10 MG TAB PO SCH ×3 (08:33→16:45)
[2022-03-21] MEDS: HYDROcodone/APAP 5/325 MG 1 TAB TAB PO PRN ×2 (08:37→15:49)
[2022-03-21] MEDS: CHLORHEXADINE GLUC 2% CLOTH TP SCH (09:54)
[2022-03-21] MEDS: MUPIROCIN CA NASAL 2% 1GM TUBE NS SCH (09:54)
[2022-03-21 10:19] VITALS: BP 118/71
[2022-03-21] MEDS: VANCOMYCIN 750 MG in DEXTROSE 5% 250 ML IV SCH ×2 (10:48→22:57)
[2022-03-21] MEDS: GAUZE TP SCH (12:55)
[2022-03-21] MEDS: THERAHONEY GEL 42.5 GM TP SCH (12:56)
[2022-03-21 17:23] VITALS: BP 98/52
--- NOTE | 2022-03-21 17:58 | NUR ---
0730 Pt. sleeping, vss, no distress noted 1200 Pt. aaox4, denies distress, nsr, call light in reach, isolation in place. 1600 Pt. spike fever of 102.5, hr of 145. Pt. given norco 1tab at 1530, blankets removed, and pt. encourage to drink ice water. 1700 Temp of 101.2 Text to Niharika Jc order for bc x2 and cxr, pt. vss, no acute distress noted 1800 Pt. needs met, wound care given as directed, pt. tolerated well, call light in reach, aaox4.
--- NOTE | 2022-03-21 19:12 | NUR ---
RECEIVED REPORT FROM AM ARIANA MIRANDA FOR CONTINUITY OF CARE.PT IS STABLE IN BED. A&OX3 . PT DENIES PAIN. ON RM AIR/O2 WITH NO ACUTE DISTRESS TEMP NOW 98.6 ORALLY AT 1930. PT AND SISTER BALBINA TALKING AT PT'S BEDSIDE. COLOSTOMY BAG FULL OF FORMED BROWN STOOL. PT AND SISTER CHANGING COLOSTOMY BAG. ALL SACRAL COCCYX DRESSINGS CHANGED TODAY. PT'S KAITLIN DBL LUMEN PICC LINE FLUSHED AND PATENT IVF RUNNING NS@80CC/HR. ALL SAFETY MEASURES IN PLACE.BED IN LOW AND LOCKED POSITION. CALL LIGHT WITHIN REACH. WILL CONTINUE TO MONITOR.
[2022-03-21 20:00] VITALS: BP 96/50
--- NOTE | 2022-03-21 21:00 | NUR ---
HS MEDS GIVEN. KAITLIN DBL LUMEN PICC LINE FLUSHED AND PATENT. IVF NS@80CC/HR INFUSING THRU PURPLE PORT, SUPRA PUBIC CATHETER DRAINING CLEAR BISHOP URINE. VSS:BP-96/50, P-99, RR-18, T-98.6, O6YKR=65% ON RM AIR. CALL LIGHT WITHIN REACH. WILL CONTINUE TO MONITOR.
[2022-03-22] VITALS: BP 94/51
[2022-03-22 04:00] VITALS: BP 95/53
[2022-03-22] MEDS: NACL 0.9% 1,000 ML IV SCH ×3 (04:30→23:19)
[2022-03-22] MEDS: MEROPENEM 1,000 MG in NACL 0.9% 50 ML IV SCH (05:40)
--- NOTE | 2022-03-22 06:30 | NUR ---
FREQ ROUNDS. CHECKED PT STABLE. AND AWAKE IN BED. RR EVEN AND UNLABORED WITH EQUAL CHEST RISE. ALL SAFETY MEASURES IN PLACE BED IN LOW AND LOCKED POSITION. CALL LIGHT WITHIN REACH. WILL CONTINUE TO MONITOR.
--- NOTE | 2022-03-22 07:20 | NUR ---
ENDORSED REPORT TO AM NURSE FOR CONTINUITY OF CARE. PT IS STABLE. ALL NEEDS MET THROUGHOUT THE SHIFT.
[2022-03-22 07:40] LABS: BASOPHILS # (AUTO) 0.2 K/uL (0.00-0.22); BASOPHILS % (AUTO) 0.9 % (0.0-2.0); EOSINOPHILS # (AUTO) 0.5 K/uL (0-0.4); EOSINOPHILS % (AUTO) 2.8 % (0.0-4.0); HEMATOCRIT 22.7 % (36-52); LYMPHOCYTES # (AUTO) 1.6 K/uL (2.0-11.5); LYMPHOCYTES % (AUTO) 9.4 % (20.5-51.1); MEAN CORPUSCULAR HEMOGLOBIN 22 pg (27-31); MEAN CORPUSCULAR HGB CONC 30 g/dL (33-37); MEAN CORPUSCULAR VOLUME 74.8 fL (80-94); MONOCYTES # (AUTO) 1.1 K/uL (0.8-1.0); MONOCYTES % (AUTO) 6.4 % (1.7-9.3); NEUTROPHILS # (AUTO) 13.5 K/uL (1.8-7.7); NEUTROPHILS % (AUTO) 80.5 % (42.2-75.2); PLATELET COUNT (AUTO) 437 K/uL (140-450); RED BLOOD CELL COUNT(AUTO) 3.03 MIL/uL (4.20-6.10); RED CELL DISTRIBUTION WIDTH 24.6 % (11.6-13.7); WHITE BLOOD COUNT (AUTO) 16.8 K/uL (4.8-10.8)
[2022-03-22 08:00] VITALS: BP 110/66
[2022-03-22 08:19] LABS: ANION GAP 11.7 (8-16); CARBON DIOXIDE 22.6 mmol/L (21-32); CREATININE 0.8 mg/dL (0.6-1.3); POTASSIUM 3.3 mmol/L (3.5-5.1)
[2022-03-22 08:23] LABS: HEMOGLOBIN 6.8 g/dL (12.0-18.0)
[2022-03-22] MEDS: FERROUS SULFATE 325 MG TABEC PO SCH ×2 (08:33→18:00)
[2022-03-22] MEDS: BACLOFEN 10 MG TAB PO SCH ×3 (08:34→18:00)
[2022-03-22] MEDS ORDERED: POTASSIUM CHLORIDE 10 MEQ TABER PO SCH (10:05)
[2022-03-22] MEDS: VANCOMYCIN 750 MG in DEXTROSE 5% 250 ML IV SCH ×2 (11:54→23:30)
[2022-03-22 12:00] VITALS: BP 109/55
[2022-03-22] MEDS: HYDROcodone/APAP 5/325 MG 1 TAB TAB PO PRN (12:33)
[2022-03-22] MEDS: THERAHONEY GEL 42.5 GM TP SCH (13:28)
[2022-03-22] MEDS: GAUZE TP SCH (13:28)
[2022-03-22 16:00] VITALS: BP 115/62
[2022-03-22] MEDS: FLUCONAZOLE 200 MG/NS PREMIX 100 ML IV SCH (17:59)
--- NOTE | 2022-03-22 19:30 | NUR ---
RECEIVED REPORT FROM DAY SHIFT NURSE YUNI. IV SITE WAS RIGHT UPPER ARM SINGLE LUMEN. PATIENT WAS LYING IN BED WITH NS RUNNING AT 80ML. PATIENT HAS A SACRAL WOUND, A RIGHT KNEE & HEEL WOUND, AND A LEFT KNEE & HEEL WOUND. WILL CONTINUE TO OBSERVE PATIENT.
[2022-03-22 20:00] VITALS: BP 91/51
[2022-03-22] MEDS: ACETAMINOPHEN 325 MG TAB PO PRN (20:24)
--- NOTE | 2022-03-22 21:09 | NUR ---
ARIANA KINCAID ASSIGNED TO THE PATIENT CALLED THE MANAGER OF LOSS PREVENTION OPERATIONS MD TO NOTIFY THAT THE PATIENT IS HAVING A TEMPERATURE OF 103.[address] MIGUEL WHO IS MANAGER OF LOSS PREVENTION OPERATIONS CALLED BACK AND AWARE. NO FURTHER ORDER GIVEN.
--- NOTE | 2022-03-22 21:15 | NUR ---
PICKED UP BLOOD FROM LAB FOR TRANSFUSION. OBTAINED VITALS FOR PATIENT. VITALS WERE: TEMP 103.8, HR 133, BP 91/51, O2 100. DID NOT TRANSFUSE BLOOD. GAVE PATIENT TYLENOL FOR FEVER AND COLD COMPRESS. ALSO MESSAGED PHYSICIAN TO INFORM OF PATIENT'S STATUS. PENDING RESPONSE. PATIENT'S BREATHING WAS NORMAL WITH SYMMETRICAL RISE AND FALL OF CHEST. BED WAS IN LOWEST POSITION, WHEELS LOCKED, CALL LIGHT WITHIN REACH. WILL CONTINUE TO OBSERVE PATIENT.
--- NOTE | 2022-03-22 22:37 | NUR ---
RE CHECKED THE PATIENT TEMPERATURE, ORALLY -98.5 , TEMPORAL- 97.5. CALLED BLOOD BANK TO NOTIFY THEM THAT WE NEED A NEW UNIT OF PRBC BECAUSE THE FIRST UNIT GIVEN EARLIER WAS WASTED AND BEEN SITTING IN THE PATIENT ROOM FOR [address] A NEW ORDER.
--- NOTE | 2022-03-22 23:30 | NUR ---
ADMINISTERED 2300 MEDICATION VANCOMYCIN IVPB. PATIENT'S FEVER WAS GONE, PENDING CALL FROM LAB FOR NEW BLOOD PICKUP. PATIENT WAS AWAKE LISTENING TO MUSIC IN BED. BREATHING WAS NORMAL WITH SYMMETRICAL RISE AND FALL OF CHEST. BED WAS IN LOWEST POSITION WITH WHEELS LOCKED AND CALL LIGHT IN PLACE. WILL CONTINUE TO OBSERVE.
[2022-03-23] VITALS: BP 92/49
--- NOTE | 2022-03-23 02:30 | NUR ---
PICKED UP BLOOD FROM LAB AROUND 0140, AFTER IVPB FINISHED. GATHERED INITIAL VITAL AND STARTED BLOOD AT 0200. OBSERVED PATIENT FOR FIRST 15 MINUTES WHILE BLOOD TRANSFUSED. PATIENT TOLERATED WELL. WILL CONTINUE TO MONITOR PATIENT PER PROTOCOL DURING TRANSFUSION. PATIENT'S BREATHING IS NORMAL WITH SYMMETRICAL RISE AND FALL OF CHEST. BED WAS IN LOWEST POSITION, WHEELS LOCKED, CALL LIGHT IN PLACE.
[2022-03-23 04:00] VITALS: BP 95/50
--- NOTE | 2022-03-23 05:00 | NUR ---
OBTAINED 0400 VITALS. OBTAINED STOOL SAMPLE. OBTAINED URINE SAMPLE. PATIENT IS LYING IN BED. IVF RUNNING NS AT 80ML/HR. WILL CONTINUE TO OBSERVE PATIENT.
[2022-03-23 07:16] LABS: BASOPHILS # (AUTO) 0.1 K/uL (0.00-0.22); BASOPHILS % (AUTO) 0.8 % (0.0-2.0); EOSINOPHILS # (AUTO) 0.5 K/uL (0-0.4); HEMATOCRIT 27.3 % (36-52); HEMOGLOBIN 8.3 g/dL (12.0-18.0); MEAN CORPUSCULAR HEMOGLOBIN 23 pg (27-31); MEAN CORPUSCULAR HGB CONC 30 g/dL (33-37); MEAN CORPUSCULAR VOLUME 75.5 fL (80-94); MONOCYTES # (AUTO) 1.4 K/uL (0.8-1.0); MONOCYTES % (AUTO) 8.7 % (1.7-9.3); NEUTROPHILS # (AUTO) 11.9 K/uL (1.8-7.7); NEUTROPHILS % (AUTO) 74.9 % (42.2-75.2); PLATELET COUNT (AUTO) 499 K/uL (140-450); RED BLOOD CELL COUNT(AUTO) 3.61 MIL/uL (4.20-6.10); RED CELL DISTRIBUTION WIDTH 24.3 % (11.6-13.7); WHITE BLOOD COUNT (AUTO) 15.9 K/uL (4.8-10.8)
--- NOTE | 2022-03-23 07:30 | NUR ---
SBAR REPORT RECEIVED FROM CODI L[address], ALL CARES ASSUMED. PT RESTING. BED IN LOW AND LOCKED POSITION, CALL LIGHT WITHIN REACH.
--- NOTE | 2022-03-23 07:35 | NUR ---
ENDORSED CARE OF PATIENT TO DAY SHIFT NURSE YUNI. PATIENT IS STABLE.
[2022-03-23 07:38] LABS: ANION GAP 10.8 (8-16); CARBON DIOXIDE 25.1 mmol/L (21-32); CREATININE 0.6 mg/dL (0.6-1.3); POTASSIUM 3.9 mmol/L (3.5-5.1)
[2022-03-23 08:00] VITALS: BP 98/52
[2022-03-23] MEDS: FERROUS SULFATE 325 MG TABEC PO SCH ×2 (08:05→16:20)
[2022-03-23] MEDS: BACLOFEN 10 MG TAB PO SCH ×3 (08:05→16:20)
[2022-03-23] MEDS: HYDROcodone/APAP 5/325 MG 1 TAB TAB PO PRN (08:10)
[2022-03-23 09:13] LABS: LYMPHOCYTES % (AUTO) 12.6 % (20.5-51.1)
[2022-03-23] MEDS: VANCOMYCIN 750 MG in DEXTROSE 5% 250 ML IV SCH ×2 (11:19→23:27)
[2022-03-23 12:00] VITALS: BP 97/56
[2022-03-23] MEDS: GAUZE TP SCH (12:41)
[2022-03-23] MEDS: THERAHONEY GEL 42.5 GM TP SCH (13:00)
[2022-03-23 16:00] VITALS: BP 128/86
[2022-03-23] MEDS: FLUCONAZOLE 200 MG/NS PREMIX 100 ML IV SCH (16:20)
[2022-03-23] MEDS: NACL 0.9% 1,000 ML IV SCH (18:02)
--- NOTE | 2022-03-23 19:30 | NUR ---
RECEIVED REPORT FROM DAY SHIFT NURSE YUNI. PATIENT WAS LYING IN BED WITH FAMILY AT BEDSIDE. PATIENT'S IV SITE WAS LUISA SINGLE LUMEN RUNNING NS 80ML/HR. PATIENT BREATHING WAS NORMAL ON ROOM AIR WITH SYMMETRICAL RISE AND FALL OF CHEST. BED WAS IN LOWEST POSITION, WHEELS LOCKED, CALL LIGHT IN REACH. WILL CONTINUE TO OBSERVE.
--- NOTE | 2022-03-23 19:31 | NUR ---
SBAR REPORT GIVEN TO CODI L[address], ALL CARES ENDORSED.
[2022-03-23 20:00] VITALS: BP 95/40
--- NOTE | 2022-03-23 20:29 | NUR ---
03/23/22 RD FOLLOW UP COMPLETED. PLEASE REFER TO NUTRITION ASSESSMENT UNDER CARE ACTIVITY FOR ESTIMATED NUTRITIONAL NEEDS. 1. CONTINUE ON REGULAR DIET TOLERATED. 2. CONTINUE ENSURE 1XDAY AND KALA BID PER RD PROTOCOL 3. RD WILL F/U 3-5 DAYS; MODERATE RISK. ROMINA FONTANEZ RD
--- NOTE | 2022-03-23 21:15 | NUR ---
LOOKED IN ON PATIENT. PATIENT WAS SLEEPING. IVF WAS RUNNING AT 80ML/HR. WILL CONTINUE TO OBSERVE.
--- NOTE | 2022-03-23 23:45 | NUR ---
ROBERTA FRANCIS IVPB. PATIENT WAS SLEEPING. TITO BEGAN RUNNING WITHOUT ISSUE. WILL CONTINUE TO OBSERVE.
[2022-03-24] VITALS: BP 92/57
--- NOTE | 2022-03-24 01:15 | NUR ---
TITO FINISHED RUNNING. PATIENT WAS STILL SLEEPING. WILL CONTINUE TO OBSERVE PATIENT.
[2022-03-24 04:00] VITALS: BP 92/50
[2022-03-24] MEDS: NACL 0.9% 1,000 ML IV SCH ×2 (04:56→19:24)
--- NOTE | 2022-03-24 05:00 | NUR ---
CHANGED IV LINE IN FOR PRIMARY BAG. HUNG NEW NS BAG. PATIENT WAS ASLEEP. WILL CONTINUE TO OBSERVE PATIENT.
--- NOTE | 2022-03-24 06:00 | NUR ---
OBTAINED BLOOD FOR LAB. PATIENT WAS AWAKE. HE STATED THAT HE WAS FEELING OKAY AND ASKED FOR HIS BLANKET TO BE PULLED HIRE UP, PULLED BLANKET UP AND ASKED IF ANYTHING ELSE WAS NEEDED. PATIENT STATED NO. IVF WAS RUNNING NS 80ML. WILL CONTINUE TO OBSERVE PATIENT.
[2022-03-24 06:39] LABS: HEMOGLOBIN 7.8 g/dL (12.0-18.0); MEAN CORPUSCULAR HEMOGLOBIN 23 pg (27-31); MEAN CORPUSCULAR HGB CONC 30 g/dL (33-37); MEAN CORPUSCULAR VOLUME 75.5 fL (80-94); PLATELET COUNT (AUTO) 483 K/uL (140-450); RED BLOOD CELL COUNT(AUTO) 3.44 MIL/uL (4.20-6.10); RED CELL DISTRIBUTION WIDTH 24.2 % (11.6-13.7); WHITE BLOOD COUNT (AUTO) 13.2 K/uL (4.8-10.8)
[2022-03-24 06:45] LABS: ANION GAP 10.8 (8-16); CARBON DIOXIDE 25.5 mmol/L (21-32); CREATININE 0.6 mg/dL (0.6-1.3); POTASSIUM 3.3 mmol/L (3.5-5.1)
--- NOTE | 2022-03-24 07:45 | NUR ---
ENDORSED CONTINUITY OF CARE TO DAY SHIFT NURSE. PATIENT IS STABLE.
[2022-03-24 08:00] VITALS: BP 141/61
--- NOTE | 2022-03-24 08:29 | NUR ---
RECEIVE ENDORSEMENT FROM PM SHIFT NURSE THAT PATIENT RES IN BED, MIDLINE LUISA INFUSING NS @80ML/HR. MORNING LAB POTASSIUM 3.3; PCP AWARE AND ORDER IS PLACING SHORTLY. WILL CONTINUE TO MONITOR
[2022-03-24] MEDS ORDERED: POTASSIUM CHLORIDE 10 MEQ TABER PO PRN (08:30)
[2022-03-24] MEDS ORDERED: KCL 20 MEQ/WATER INJ PREMIX 200 ML IV PRN (08:30)
[2022-03-24] MEDS ORDERED: MAG SULF 2000 MG/WATER PREMIX 50 ML IV PRN (08:30)
[2022-03-24] MEDS ORDERED: MAGNESIUM OXIDE 400 MG TAB PO PRN (08:30)
[2022-03-24 08:59] LABS: BASOPHILS % (MANUAL) 0 % (0-2); EOSINOPHILS % (MANUAL) 5 % (0-4); LYMPHOCYTES % (MANUAL) 12 % (20-46); MONOCYTES % (MANUAL) 10 % (5-12)
[2022-03-24 09:00] LABS: BUFFY COAT SMEAR PREP N
[2022-03-24] MEDS: BACLOFEN 10 MG TAB PO SCH ×3 (09:08→16:09)
[2022-03-24] MEDS: HYDROcodone/APAP 5/325 MG 1 TAB TAB PO PRN ×3 (09:08→16:08)
[2022-03-24] MEDS: FERROUS SULFATE 325 MG TABEC PO SCH ×2 (09:09→16:07)
--- NOTE | 2022-03-24 11:30 | NUR ---
WOUND CARE RE-EVALUATION NOTE: WOUND CARE DONE WITH PRIMARY ARIANA BOYER. WOUND CARE NURSE MET WITH SISTER ROBINSON AT BED SIDE. SISTER BROUGHT COLOSTOMY SUPPLY FROM HOME AND HAS JUST FINISHED THE COLOSTOMY CARE. ALL QUESTIONS ABOUT WOUND CARES ANSWERED, POC DISCUSSED INCLUDING NUTRITION, INTERVENTIONS OF SKIN ,PRESSURE INJURY PREVENTION PLUS OF DAILY WOUND CARE AND PER SISTER SHE IS ABLE AND WILL CONTINUE TO FOLLOW DIRECTIONS. SACRALCOCCYX, RIGHT ISCHIUM AND RIGHT KNEE WOUND RE-EVALUATION DONE. PER PT. ALL OTHER WOUND DRESSING WERE JUST CHANGED FEW HOURS AGO. DO NOT WANT IT TO BE TOUCHED AGAIN. DRESSING DCI. SACRALCOCCYX WOUND PHOTO OBTAINED BY PRIMARY ARIANA BOYER. PER SISTER LAST WOUND ASSESSMENT FROM HOME WOUND DOCTOR WAS 02/21/2022. THEN PT. ADMITTED TO HOSPITAL. PER SISTER DUE TO PT. KEPT SLIDING OUT OF WC AND SHE STRAPPED HIS LEG. THAT IS HOW THE RIGHT KNEE WOUND STARTED. EDUCATION PROVIDED NEED TO FIT THE WC FOR PROPER SIZE. PER SISTER THERE WAS A COMPANY SUPPOSE TO COME TO DO THAT, SHE WILL CALL THE COMPANY AGAIN TO FOLLOW UP. RIGHT KNEE BROWN TISSUE RESOLVED AND RESPOND TO [place]. WILL TRY AGAIN SOME TIME THIS WEEK TO EVAL. REST OF WOUNDS. TODAYS RE-EVALUATION: -PRESSURE INJURY STAGE 4, SACROCOCCYX [id number] TUNNEL WOUND TO 3 0CLOCK 6.5CM, HEBER-WOUND SKIN TO ENTIRE BILATERAL BUTTOCKS WITH FULL THICKNESS SKIN LOSS 89O83C3.3CM WOUND BED GRANULATION RED TISSUE, MOIST, NO ODOR, WOUND EDGE TOWARD 9 OCLOCK DIRECTION HEALING SCARE TISSUE LIFTED WITH A TUNNEL WOUND 0.5CM AND 6CM DEEP, CLEAN, MOIST, SURROUNDING OLD HEALED SCAR TISSUE PINK AND MOIST. - RIGHT KNEE PRESSURE INJURY STAGE 4,13X8X0.5CM, WOUND BED WITH 100% GRANULATING TISSUE, TUNNEL TO 1 OCLOCK DIRECTION 0.8CM DEEP, MOIST, NO ODOR, HEBER WOUND SKIN INTACT. - PRESSURE INJURY STAGE 4, RIGHT ISCHIUM 5X4X5.5CM WOUND BED IS RED 90% GRANULATING TISSUE,10% LIGHT BROWN SLOUGH TISSUE TO 9 OCLOCK DIRECTION, MOIST NO ODOR, HEBER WOUND SKIN OLD HEALED SCAR TISSUE, MOIST SURROUNDING REDNESS WITH SKIN INTACT.
[2022-03-24] MEDS: VANCOMYCIN 750 MG in DEXTROSE 5% 250 ML IV SCH ×2 (11:54→23:00)
[2022-03-24 12:00] VITALS: BP 110/77
[2022-03-24] MEDS: GAUZE TP SCH (12:07)
[2022-03-24] MEDS: THERAHONEY GEL 42.5 GM TP SCH (12:07)
[2022-03-24] MEDS: MEROPENEM 1,000 MG in NACL 0.9% 50 ML IV SCH ×2 (13:38→20:03)
--- NOTE | 2022-03-24 14:20 | NUR ---
DC PLANNING: PER DR CHAVEZ'S NOTES PT HAS FEVER OVERNIGHT RAISING POSSIBILITY OF NEW INFECTION ORDERED TO REPEAT BLOOD AND URINE CULTURES REPEAT CXR AND C-DIFF. ON VANCO AND MEROPENEM ADD FLUCONAZOLE . PT IS WITH [employer] AND A SISTER IS HIS PRIMARY CARE GIVE. PATIENT STATED REFUSED TO GO TO SNF AND PT'S SISTER STATED SHE IS THE BUILDING CONSTRUCTION TEACHER FOR HIM. DC PLAN TO GO HOME WITH [facility]. CM TO FOLLOW Addendum: 03/25/22 at 1232 by Elizabeth Hilliard RN DC PLANNING: CM DISCUSSED THE DC PLAN WITH DR CROWE STATED HE IS WAITING FOR DR CHRISTINE TO CLEAR PATIENT, PE DR CHRISTINE'S NOTES ORDERED REPEAT BLOOD CULTURE AND TO REEVALUATE WITH SURGEON FOR SACRAL DECUB. CALLED [facility] SPOKE WITH MICROBIOLOGIST STATED SINCE IT'S ANAEROBIC CULTURE THERE IS NO SENSITIVITY, NOTIFIED DR CROWE. DC PLAN PER DR CHAVEZ'S RECOMMENDATIONS. PT IS WITH [employer] AND HIS SISTER IS THE MAIN BUILDING CONSTRUCTION TEACHER TRAINED TO CHANGE SACRAL WOUND. CM TO FOLLOW Addendum: 03/26/22 at 1139 by Elizabeth Hilliard RN DC PLANNING: RECEIVED A CALL FROM [facility] SPOKE WITH PATRICIA STATED SHE IS WORKING ON THE HOME INFUSION WITH THE CONTRACTED PHARMACY AND WILL CALL BACK. BUZZ MENTIONED ABOUT THE NEED FOR THE HOSPITAL BED, PATRICIA STATED TO CALL [facility] [phone] . BUZZ CALLED [facility] SPOKE WITH MARIA STATED THE HOSPITAL BED ISSUED JANUARY 2020 AND ITS OWNED BY THE PATIENT. BUZZ CALLED BACK [facility] NOTIFIED HER THAT PO NEEDS NEW AUTHORIZATION. PATRICIA STATED WILL SUBMIT TO [facility] DIAPER MACHINE TENDER AND WILL CALL PT'S SISTER. BUZZ TO FOLLOW
[2022-03-24 16:00] VITALS: BP 93/50
[2022-03-24] MEDS: FLUCONAZOLE 200 MG/NS PREMIX 100 ML IV SCH (16:07)
--- NOTE | 2022-03-24 19:54 | NUR ---
ENDORSE PATIENT TO PM SHIFT NURSE THAT PATIENT REST IN BED, MIDLINE LUISA INFUSING NS @80ML/HR. MORNING LAB POTASSIUM 3.3 CORRECT WITH 40MEQ K DUR VIA MOUTH.
[2022-03-24 20:00] VITALS: BP 90/52
--- NOTE | 2022-03-24 20:00 | NUR ---
RECEIVED REPORT FROM AM NURSE FOR CONTINUITY OF CARE. PT IS AWAKE IN BED TALKING WITH SISTER AND FINISHING DINNER. A&OX4. DENIES PAIN AT THIS TIME.ON RM AIR/O2 WITH NO ACUTE DISTRESS.RR EVEN AND UNLABORED WITH EQUAL CHEST RISE. GI IS NOT INTACT. COLOSTOMY BAG HAS A MODERATE AMOUNT OF SOFT BROWN STOOL. PT'S SKIN HAS MULTIPLE PRESSURE WOUND: STAGE 4 R BUTTOCK, STAGE 3 R KNEE, STAGE 2 L KNEE, AND DTI'S BILATERAL FEET. ALL DRESSINGS ARE D&I. PT IS BED BOUND BUT ASSISTS IN TURNING. SUPRA PUBIC CATHETER DRAINING CLEAR YELLOW URINE. ALL SAFETY MEASURES IN PLACE. BED IS IN LOW AND LOCKED POSITION. CALL LIGHT WITHIN REACH. WILL CONTINUE TO MONITOR.
--- NOTE | 2022-03-24 22:30 | NUR ---
COLOSTOMY BAG WAS FULL. PT ASSISTED RN IN CHANGING THE COLOSTOMY BAG. PT WAS REPOSITIONED FOR COMFORT AND TO OFF LOAD PRESSURE AREAS. PT RESTING DOZING. RR EVEN AND UNLABORED WITH EQUAL CHEST RISE. ALL SAFETY MEASURES IN PLACE. BED IN LOW AND LOCKED POSITION. CALL LIGHT WITHIN REACH. WILL CONTINUE WITH FREQ ROUNDS.
[2022-03-25] VITALS: BP 94/55
[2022-03-25 04:00] VITALS: BP 106/54
[2022-03-25] MEDS: MEROPENEM 1,000 MG in NACL 0.9% 50 ML IV SCH ×3 (04:09→21:31)
[2022-03-25] MEDS: HYDROcodone/APAP 5/325 MG 1 TAB TAB PO PRN ×3 (06:13→16:42)
--- NOTE | 2022-03-25 06:13 | NUR ---
PT C/O 8/10 PAIN IN LOWER BACK, SHOULDERS AND HEAD. RECEIVED NORCO 1TAB PO. WITH RELIEF DISCOMFORT EASING AFTER 20 MINUTES. WILL CONTINUE TO MONITOR.
[2022-03-25] MEDS: NACL 0.9% 1,000 ML IV SCH ×2 (07:30→20:00)
[2022-03-25 08:00] VITALS: BP 90/53
--- NOTE | 2022-03-25 08:10 | NUR ---
RECEIVE ENDORSEMENT FROM PM SHIFT NURSE THAT PATIENT REST IN BED WHILE IV NS INFUSING VIA LUISA PICC LINE. WILL CONTINUE TO MONITOR
[2022-03-25] MEDS: BACLOFEN 10 MG TAB PO SCH ×3 (08:36→16:41)
[2022-03-25] MEDS: FERROUS SULFATE 325 MG TABEC PO SCH ×2 (08:36→16:41)
[2022-03-25 09:47] LABS: BASOPHILS # (AUTO) 0.1 K/uL (0.00-0.22); RED BLOOD CELL COUNT(AUTO) 3.27 MIL/uL (4.20-6.10)
[2022-03-25 10:01] LABS: ALBUMIN 0.8 g/dL (3.4-5.0); ANION GAP 7.8 (8-16); CARBON DIOXIDE 26.7 mmol/L (21-32); CREATININE 0.6 mg/dL (0.6-1.3); POTASSIUM 3.5 mmol/L (3.5-5.1); TOTAL BILIRUBIN 0.1 mg/dL (0.0-1.0)
[2022-03-25 10:03] LABS: BASOPHILS % (AUTO) 0.9 % (0.0-2.0); EOSINOPHILS # (AUTO) 0.5 K/uL (0-0.4); EOSINOPHILS % (AUTO) 3.5 % (0.0-4.0); HEMATOCRIT 24.8 % (36-52); HEMOGLOBIN 7.5 g/dL (12.0-18.0); LYMPHOCYTES # (AUTO) 1.6 K/uL (2.0-11.5); LYMPHOCYTES % (AUTO) 11.3 % (20.5-51.1); MEAN CORPUSCULAR HEMOGLOBIN 23 pg (27-31); MEAN CORPUSCULAR HGB CONC 30 g/dL (33-37); MEAN CORPUSCULAR VOLUME 75.8 fL (80-94); MONOCYTES # (AUTO) 1.4 K/uL (0.8-1.0); MONOCYTES % (AUTO) 9.7 % (1.7-9.3); NEUTROPHILS # (AUTO) 10.7 K/uL (1.8-7.7); NEUTROPHILS % (AUTO) 74.6 % (42.2-75.2); PLATELET COUNT (AUTO) 446 K/uL (140-450); RED CELL DISTRIBUTION WIDTH 24.5 % (11.6-13.7); WHITE BLOOD COUNT (AUTO) 14.4 K/uL (4.8-10.8)
[2022-03-25] MEDS: VANCOMYCIN 750 MG in DEXTROSE 5% 250 ML IV SCH ×2 (11:22→22:17)
[2022-03-25 12:00] VITALS: BP 90/53
[2022-03-25] MEDS: GAUZE TP SCH (12:48)
[2022-03-25] MEDS: THERAHONEY GEL 42.5 GM TP SCH (12:49)
--- NOTE | 2022-03-25 14:11 | NUR ---
RE-DO PATIENT'S WOUND DRESS AT SACROCOCCYGEAL. PATIENT TOLERATE PROCEDURE. ADDITIONAL, PER PATIENT'S SISTER, PATIENT'S SBP BASELINE AROUND 90 D/T INHERITANCE. WILL CONTINUE TO MONITOR
[2022-03-25 16:00] VITALS: BP 107/49
[2022-03-25] MEDS: FLUCONAZOLE 200 MG/NS PREMIX 100 ML IV SCH (16:40)
[2022-03-25 20:00] VITALS: BP 90/58
[2022-03-26] VITALS: BP 93/55
[2022-03-26 04:00] VITALS: BP 97/69
[2022-03-26] MEDS: MEROPENEM 1,000 MG in NACL 0.9% 50 ML IV SCH ×2 (04:08→13:11)
--- NOTE | 2022-03-26 07:25 | NUR ---
ENDORSED TO AM ARIANA GUADARRAMA FOR CONTINUITY OF CARE. PT IS STABLE. ALL NEEDS MET THROUGHOUT THE SHIFT.
--- NOTE | 2022-03-26 07:30 | NUR ---
RECEIVED REPORT FROM AGENCY SALES REPRESENTATIVE NURSEESTEBAN FOR CONTINUITY OF CARE, PT RESTING IN BED ON ROOM AIR WITH CHEST RISING AND FALLING EVEN AND UNLABORED, SHEET OVER FACE. ON TELE MONITOR SHOWING SR. PT HS COLOSTOMY BAG, AND SUPRAPUBIC CATH. RIGHT UPPER ARM MIDLINE RUNNING NS @80. MULTIPLE WOUNDS REPORTED, SEE WOUND ASSESSMENT. PLAN IS TO SET UP HOME HEALTH FOR IV ABX AND WOUND CARE, PENDING CASE MANAGEMENT. ALL SAFETY MEASURES IN PLACE, CALL LIGHT WITHIN REACH. WILL CONTINUE TO MONITOR.
[2022-03-26 08:00] VITALS: BP 112/59
[2022-03-26] MEDS ORDERED: FLUC200T PO (08:12)
[2022-03-26] MEDS: NACL 0.9% 1,000 ML IV SCH (08:14)
[2022-03-26] MEDS: FERROUS SULFATE 325 MG TABEC PO SCH (08:16)
[2022-03-26] MEDS: BACLOFEN 10 MG TAB PO SCH ×2 (08:16→13:11)
[2022-03-26 08:39] LABS: BASOPHILS # (AUTO) 0.1 K/uL (0.00-0.22); BASOPHILS % (AUTO) 0.8 % (0.0-2.0); EOSINOPHILS # (AUTO) 0.2 K/uL (0-0.4); HEMATOCRIT 27.2 % (36-52); HEMOGLOBIN 8.2 g/dL (12.0-18.0); LYMPHOCYTES # (AUTO) 1.4 K/uL (2.0-11.5); LYMPHOCYTES % (AUTO) 8.6 % (20.5-51.1); MEAN CORPUSCULAR HEMOGLOBIN 23 pg (27-31); MEAN CORPUSCULAR HGB CONC 30 g/dL (33-37); MEAN CORPUSCULAR VOLUME 75.3 fL (80-94); MONOCYTES % (AUTO) 5.7 % (1.7-9.3); NEUTROPHILS # (AUTO) 14.2 K/uL (1.8-7.7); NEUTROPHILS % (AUTO) 83.9 % (42.2-75.2); PLATELET COUNT (AUTO) 530 K/uL (140-450); RED BLOOD CELL COUNT(AUTO) 3.61 MIL/uL (4.20-6.10); RED CELL DISTRIBUTION WIDTH 24.5 % (11.6-13.7); WHITE BLOOD COUNT (AUTO) 16.9 K/uL (4.8-10.8)
--- NOTE | 2022-03-26 09:00 | NUR ---
[facility]IKA MEDICATION ADMINISTERED PER MD ORDER, PT EDUCATED AND VERBALIZED UNDERSTANDING. PROVIDED WITH FRESH WATER AND ALL OTHER NEEDS MET. PT VERBALIZED NO NEED FOR ANYTHING AT THIS TIME. ALL SAFETY MEASURES IN PLACE, CALL LIGHT WITHIN REACH. WILL CONTINUE TO MONITOR.
[2022-03-26 09:22] LABS: ANION GAP 10.2 (8-16); CARBON DIOXIDE 26.7 mmol/L (21-32); CREATININE 0.8 mg/dL (0.6-1.3); POTASSIUM 3.9 mmol/L (3.5-5.1); TOTAL BILIRUBIN 0.2 mg/dL (0.0-1.0)
[2022-03-26] MEDS: HYDROcodone/APAP 5/325 MG 1 TAB TAB PO PRN (10:18)
--- NOTE | 2022-03-26 11:00 | NUR ---
[facility] IV ABX ADMINISTERED PER MD ORDER, PT TOLERATED ADMINISTRATION. IV PATENT AND INTACT, DRESSING CHANGE COMPLETED ON 03/25/22. ALL SAFETY MEASURES IN PLACE, CALL LIGHT WITHIN REACH. WILL CONTINUE TO MONITOR.
[2022-03-26] MEDS: VANCOMYCIN 750 MG in DEXTROSE 5% 250 ML IV SCH (11:07)
[2022-03-26 12:00] VITALS: BP 110/65
--- NOTE | 2022-03-26 12:15 | NUR ---
WOUND CARE RE-EVALUATION NOTE: WOUND ASSESSMENT AND TREATMENT DONE WITH PRIMARY RN, DISCHARGED PHOTOS OBTAINED. SISTER AT BED SIDE TAKING NOTE FOR WOUND CARE INSTRUCTIONS, PRODUCTS INFORMATIONS AND POC DISCUSSED WITH PT. AND SISTER INCLUDING NO PROLONG SITTING, CONTINUE TO TURN AND REPOSITION WITH OFFLOADING INSTRUCTED. PT. AND SISTER VERBALIZES UNDERSTANDING. PER SISTER SHE ALREADY CONTACT THE [employer] TO SCHEDULE FITTING. -PRESSURE INJURY STAGE 4, SACROCOCCYX [id number] TUNNEL WOUND TO 3 0CLOCK 6.5CM, HEBER-WOUND SKIN TO ENTIRE BILATERAL BUTTOCKS WITH FULL THICKNESS SKIN LOSS 99U53X1.3CM WOUND BED GRANULATION RED TISSUE, MOIST, NO ODOR, WOUND EDGE TOWARD 9 OCLOCK DIRECTION HEALING SCARE TISSUE LIFTED WITH A TUNNEL WOUND 0.5CM AND 6CM DEEP, CLEAN, MOIST, SURROUNDING OLD HEALED SCAR TISSUE PINK AND MOIST. - RIGHT KNEE PRESSURE INJURY STAGE 4,13X8X0.5CM, WOUND BED WITH 100% GRANULATING TISSUE, TUNNEL TO 1 OCLOCK DIRECTION 0.8CM DEEP, MOIST, NO ODOR, HEBER WOUND SKIN INTACT. - PRESSURE INJURY STAGE 4, RIGHT ISCHIUM 5X4X5.5CM WOUND BED IS RED 90% GRANULATING TISSUE,10% LIGHT BROWN SLOUGH TISSUE TO 9 OCLOCK DIRECTION, MOIST NO ODOR, HEBER WOUND SKIN OLD HEALED SCAR TISSUE, MOIST SURROUNDING REDNESS WITH SKIN INTACT. - PRESSURE INJURY STAGE 3 LEFT KNEE (PROXIMAL) 2X2X0.1CM WOUND BED WITH 100% SOFT YELLOW SLOUGH TISSUE, MOIST, NO ODOR, HEBER WOUND DRY, PEELING SKIN. - PRESSURE INJURY STAGE 3 LEFT KNEE (DISTAL) 1.5X1.5X0.1CM WOUND BED WITH 100% GRANULATING TISSUE, MOIST, NO ODOR, HEBER WOUND DRY, PEELING SKIN. -PRESSURE INJURY STAGE 4 LEFT HEEL AREA 2X4X0.3CM WOUND BED WITH 100% GRANULATING TISSUE, MOIST, NO ODOR, HEBER WOUND SKIN A PARTIAL THICKNESS SKIN LOSS 1X1X0.1CM WOUND BED PINK, MOIST AND NO ODOR. -LEFT MEDIAL HEEL PRESSURE INJURY UN-STAGEABLE, 3X4CM DRY STABLE DARK BROWN ESCHAR TISSUE -PRESSURE INJURY STAGE 4 RIGHT HEEL AREA 2X3X0.3CM WOUND BED WITH 100% GRANULATING TISSUE, MOIST, NO ODOR, HEBER WOUND SKIN MUSHY, INTACT AND NO ODOR.
--- NOTE | 2022-03-26 12:40 | NUR ---
FULL WOUND CARE PROVIDED WITH WOUND CARE NURSE, SISTER AT BEDSIDE, FULL INSTRUCTIONS PROVIDED REGARDING WOUND CARE AT HOME. ALL QUESTIONS ANSWERED, SEE WOUND ASSESSMENT. DISCHARGE PHOTOS TAKEN. PT REMAINED STABLE THROUGHOUT WOUND CARE.
--- NOTE | 2022-03-26 13:00 | NUR ---
SPOKE TO CASE MANAGEMENT REGARDING PT BEING DISCHARGED, AND THE MEDICATION PRESCRIBED. STATED THE IV ABX ORDERS WAS FAXED AND SENT TO THE PHARMACY ALREADY, NOTHING NEEDING TO BE DONE PER RN SIDE, STATED PT IS READY TO BE DISCHARGED, PENDING [employer] COMPONENTS INSPECTOR TIME AND TRANSPORT PER INSURANCE.
[2022-03-26] MEDS: GAUZE TP SCH (13:09)
[2022-03-26] MEDS: THERAHONEY GEL 42.5 GM TP SCH (13:09)
--- NOTE | 2022-03-26 13:49 | NUR ---
CENTRAL LINE DRESSING CHANGE COMPLETED, PT STABLE. PT HAS SIGNED ALL DISCHARGE PAPERWORK, ALL QUESTIONS HAVE BEEN ANSWERED. CASE MANAGEMENT AT BEDSIDE WELL AND ANSWERED ALL QUESTIONS. PT IS GETTING DRESSED BY RESTAURANT AND BAR MANAGER. ALL BELONGINGS AT BEDSIDE.
--- NOTE | 2022-03-26 14:30 | NUR ---
PT HAS BEEN DISCHARGED IN STABLE CONDITION, WITH RIGHT UPPER MIDLINE, COLOSTOMY, SUPRAPUBIC CATH. ALL DRESSINGS AND WOUND DRESSING CHANGING COMPLETED. ALL QUESTIONS WERE ANSWERED. ALL BELONGINGS COLLECTED AND GIVEN TO TRANSPORT PERSONNEL. DISCHARGE PAPERWORK IN WITH BELONGINGS. PT STABLE. TELE MONITOR PLACED IN COLLECTIVE BARGAINING SPECIALIST OFFICE
== END 2022-03-26 14:30 | disposition home or self-care (01) | DRG 720 ==
LOC: MED 13:48 → MMU 20:19 → MTU 22:35
PROVIDERS: ADMIT Internal Medicine; ATTEND Internal Medicine
PROC: 02HV33Z Insertion of Infusion Device into Superior Vena Cava, Percutaneous Approach (ICD-10-PCS; 2022-03-19)
PROC: B548ZZA Ultrasonography of Superior Vena Cava, Guidance (ICD-10-PCS; 2022-03-19)
PROC: 30233N1 Transfusion of Nonautologous Red Blood Cells into Peripheral Vein, Percutaneous Approach (ICD-10-PCS; principal; 2022-03-22)
DX: A41.89 Other specified sepsis (principal); E43 Unspecified severe protein-calorie malnutrition; L89.314 Pressure ulcer of right buttock, stage 4; G82.20 Paraplegia, unspecified; S81.001A Unspecified open wound, right knee, initial encounter; D50.9 Iron deficiency anemia, unspecified; N39.0 Urinary tract infection, site not specified; N31.9 Neuromuscular dysfunction of bladder, unspecified; X58.XXXA Exposure to other specified factors, initial encounter; Z20.822 Contact with and (suspected) exposure to COVID-19; M86.9 Osteomyelitis, unspecified; J98.11 Atelectasis; B96.89 Other specified bacterial agents as the cause of diseases classified elsewhere; Z93.3 Colostomy status; Z88.0 Allergy status to penicillin; Y93.89 Activity, other specified; Y92.89 Other specified places as the place of occurrence of the external cause; Y99.8 Other external cause status; Z68.37 Body mass index [BMI] 37.0-37.9, adult; E87.1 Hypo-osmolality and hyponatremia; E83.51 Hypocalcemia
CPT/HCPCS: 36415; 36430; 71045; 78315; 80048; 80053; 80202; 81001; 82948; 83605; 83735; 85025; 85610; 85730; 86886; 86900; 86901; 86920; 87040; 87081; 87086; 93971; 96361; 96365; 99291; A9503; J0610; J1450; J2185; J3370; J7030; J7060; P9016; Q0092